=== PATIENT | male | born 1960 | race Hispanic/Latino ===

== ENCOUNTER 2018-02-20 08:08 | Emergency (ER) | payer SELFPAY ==
--- NOTE | 2018-02-20 16:50 | RAD ---
ABDOMEN ONE VIEW: 02/20/2018 FINDINGS: A single view is provided. The gas pattern is normal with no sign of obstruction or distended bowel. No calcifications of concern are seen. The gastrostomy tube is in place. The tip appears to be in the vicinity of the distal stomach/proximal duodenum. Contrast would be needed to ensure correct po sitioning. IMPRESSION: No acute findings. POS: HOME
== END 2018-02-20 09:14 ==
LOC: BURERS 08:08
DX: Z43.1 Encounter for attention to gastrostomy (principal); G40.909 Epilepsy, unspecified, not intractable, without status epilepticus; Z86.73 Personal history of transient ischemic attack (TIA), and cerebral infarction without residual deficits; J44.9 Chronic obstructive pulmonary disease, unspecified; F17.210 Nicotine dependence, cigarettes, uncomplicated; Z79.899 Other long term (current) drug therapy
CPT/HCPCS: 43753; 74018; B4087